=== PATIENT | female | born 1950 | race Caucasian/White ===

== ENCOUNTER 2016-09-07 18:25 | Inpatient (IN) | payer OTHER ==
[~2016-09-07] VITALS: Ht 157.5 cm; Wt 58.1 kg
[~2016-09-07 18:25] MED LIST: ALEN70TA48 PO; CARB-101 PO; DIVA500T35 PO; LEVO100 PO; LISI-662 PO; OLAN10TA3 PO; OLAN5TAB2 PO; OMEP20 PO; PROV2.5 PO; QUET50TA PO; TRAM50TA4 PO; TRIH5TAB2 PO; [UNRECOGNIZED DRUG - CODE] PO
[2016-09-07] MEDS ORDERED: CHLO100T24 PO (19:09)
[2016-09-07] MEDS ORDERED: FLUD25I IM (19:09)
[2016-09-07] MEDS ORDERED: ESCI10TA PO (19:09)
[2016-09-07] MEDS ORDERED: DIPH25 PO (19:09)
[2016-09-07] MEDS ORDERED: TRAZ-147 PO (19:09)
[2016-09-07 19:45] LABS: BASOPHILS % (AUTO) 0.4 % (0.0-2.0); EOSINOPHILS % (AUTO) 0.4 % (1.0-6.0); HEMATOCRIT 38.7 % (36-46); HEMOGLOBIN 12.8 g/dL (12.0-16.0); LYMPHOCYTES # (AUTO) 2.2 K/uL (1.0-4.8); LYMPHOCYTES % (AUTO) 22.8 % (22.0-44.0); MEAN CORPUSCULAR HEMOGLOBIN 29.6 pg (26.0-34.0); MEAN CORPUSCULAR HGB CONC 32.9 G/dL (31.0-37.0); MEAN CORPUSCULAR VOLUME 90 fL (80-100); MONOCYTES # (AUTO) 0.9 K/uL (0.1-1.0); MONOCYTES % (AUTO) 9.6 % (2.0-9.0); NEUTROPHILS # (AUTO) 6.5 K/uL (1.8-7.7); NEUTROPHILS % (AUTO) 66.8 % (40.0-70.0); PLATELET COUNT (AUTO) 194 K/uL (150-450); RED BLOOD CELL COUNT(AUTO) 4.31 MIL/uL (4.00-5.20); RED CELL DISTRIBUTION WIDTH 12.8 % (11.5-14.5); WHITE BLOOD COUNT (AUTO) 9.8 K/uL (4.5-11.0)
[2016-09-07] MEDS ORDERED: ONDANSETRON HCL 4 MG/2 ML VIAL IVP ONE (19:45)
[2016-09-07] MEDS ORDERED: SODIUM CHLORIDE 0.9% 1,000 ML IV ONE (19:45)
[2016-09-07 19:57] LABS: ANION GAP 13 mmol/L (8-16); CALCIUM, TOTAL 9.5 mg/dL (8.8-10.5); CARBON DIOXIDE 20 mmol/L (22-29); CHLORIDE 110 mmol/L (98-107); CREATININE 1.71 mg/dL (0.60-1.30); GLOMERULAR FILTR. RATE CALC 30 mL/min (>60); SODIUM SERUM 143 mmol/L (136-145); UREA NITROGEN, BLOOD 36 mg/dL (7-18)
[2016-09-07 20:21] LABS: ALANINE AMINOTRANSFERASE 17 U/L (12-78); ALBUMIN 3.9 g/dL (3.4-5.0); ASPARTATE AMINOTRANSFERASE 23 U/L (15-37); CREATINE KINASE MB 1.7 ng/mL (0-5); CREATINE KINASE, TOTAL 159 U/L (26-192); TOTAL PROTEIN, SERUM 7.5 g/dL (6.4-8.2)
[2016-09-07] MEDS: SODIUM CHLORIDE 0.9% 1,000 ML IV SCH (21:30)
[2016-09-07] MEDS ORDERED: ACETAMINOPHEN 325 MG TABLET PO PRN (21:30)
[2016-09-07] MEDS ORDERED: MAGNESIUM HYDROXIDE SUSPENSION 30 ML UDCUP PO PRN (21:30)
[2016-09-07] MEDS ORDERED: ALBUTEROL SULFATE 2.5 MG/0.5 ML NEB SOLUTION NEB PRN (21:30)
[2016-09-08 01:41] LABS: THYROID STIMULATING HORMONE 0.97 uIU/mL (0.36-3.74)
[2016-09-08 01:51] LABS: ADD UA MICROSCOPIC NO; APPEARANCE,URINE CLOUDY (CLEAR); GLUCOSE, URINE (UA) NEGATIVE (NEGATIVE); KETONES,URINE TRACE mg/dL (NEGATIVE); LEUKOCYTE ESTERASE ,URINE NEGATIVE (NEGATIVE); OCCULT BLOOD,URINE NEGATIVE (NEGATIVE); PROTEIN,URINE POS 1+ (NEGATIVE)
[2016-09-08] MEDS ORDERED: MENEST PO SCH (09:00)
[2016-09-08] MEDS ORDERED: FluPHENAZine DECANOATE 25 MG/ML IM SCH (09:00)
[2016-09-08] MEDS ORDERED: OMEPRAZOLE 20 MG CAPSULE PO SCH (09:00)
[2016-09-08] MEDS: DIVALPROEX SODIUM 500 MG DR TABLET PO SCH ×2 (10:17→20:43)
[2016-09-08] MEDS: OLANZapine 5 MG TABLET PO SCH (10:17)
[2016-09-08] MEDS: HEPARIN SODIUM,PORCINE 5,000 UNITS/ML VIAL SQ SCH ×2 (10:17→20:43)
[2016-09-08] MEDS: DOCUSATE SODIUM 100 MG CAPSULE PO SCH ×2 (10:17→20:43)
[2016-09-08] MEDS: PANTOPRAZOLE SODIUM 40 MG DR TABLET PO SCH (10:17)
[2016-09-08] MEDS: CARBIDOPA/LEVODOPA 25-100 MG TABLET PO SCH ×3 (10:17→20:43)
[2016-09-08] MEDS: LISINOPRIL 20 MG TABLET PO SCH (10:17)
[2016-09-08] MEDS: TRIHEXYPHENIDYL HCL 5 MG TABLET PO SCH ×2 (10:17→20:43)
[2016-09-08] MEDS: ASPIRIN 81 MG CHEWABLE TABLET PO SCH (10:17)
[2016-09-08 12:14] VITALS: BP 111/63
[2016-09-08 15:03] VITALS: BP 114/66
[2016-09-08] MEDS ORDERED: LORazepam 0.5 MG TABLET PO PRN (18:45)
[2016-09-08 19:34] VITALS: BP 126/74
[2016-09-08] MEDS: OLANZapine 10 MG TABLET PO SCH (20:43)
[2016-09-08] MEDS: QUEtiapine FUMARATE 100 MG TABLET PO SCH (20:43)
[2016-09-08] MEDS: DiphenhydrAMINE HCL 50 MG CAPSULE PO SCH (20:44)
[2016-09-08] MEDS ORDERED: TraZODone HCL 100 MG TABLET PO SCH (21:00)
[2016-09-08] MEDS ORDERED: ESCITALOPRAM OXALATE 10 MG TABLET PO SCH (21:00)
[2016-09-08] MEDS ORDERED: ChlorproMAZINE HCL 100 MG TABLET PO SCH (21:00)
[2016-09-08 23:15] VITALS: BP 124/63
[2016-09-09] MEDS: DiphenhydrAMINE HCL 50 MG CAPSULE PO SCH (00:21)
[2016-09-09] MEDS: SODIUM CHLORIDE 0.9% 1,000 ML IV SCH (00:21)
[2016-09-09 05:18] VITALS: BP 138/60
[2016-09-09] MEDS: LEVOTHYROXINE SODIUM 100 MCG TABLET PO SCH ×2 (05:53→05:59)
[2016-09-09 05:59] LABS: BASOPHILS # (AUTO) 0.03 K/uL (0.00-0.20); BASOPHILS % (AUTO) 0.5 % (0.0-2.0); EOSINOPHILS # (AUTO) 0.19 K/uL (0.00-0.70); EOSINOPHILS % (AUTO) 2.69 % (1.0-6.0); HEMOGLOBIN 12.3 g/dL (12.0-16.0); LYMPHOCYTES # (AUTO) 4.2 K/uL (1.0-4.8); LYMPHOCYTES % (AUTO) 58.3 % (22.0-44.0); MEAN CORPUSCULAR HEMOGLOBIN 30.5 pg (26.0-34.0); MEAN CORPUSCULAR HGB CONC 34.1 G/dL (31.0-37.0); MEAN CORPUSCULAR VOLUME 89 fL (80-100); MONOCYTES # (AUTO) 0.5 K/uL (0.1-1.0); MONOCYTES % (AUTO) 7.5 % (2.0-9.0); NEUTROPHILS # (AUTO) 2.2 K/uL (1.8-7.7); PLATELET COUNT (AUTO) 155 K/uL (150-450); RED BLOOD CELL COUNT(AUTO) 4.03 MIL/uL (4.00-5.20); RED CELL DISTRIBUTION WIDTH 13.1 % (11.5-14.5); WHITE BLOOD COUNT (AUTO) 7.2 K/uL (4.5-11.0)
[2016-09-09 06:43] LABS: ALANINE AMINOTRANSFERASE 11 U/L (12-78); ANION GAP 11 mmol/L (8-16); ASPARTATE AMINOTRANSFERASE 18 U/L (15-37); BILIRUBIN,TOTAL 0.8 mg/dL (0.1-1.0); CALCIUM, TOTAL 8.4 mg/dL (8.8-10.5); CARBON DIOXIDE 21 mmol/L (22-29); CHLORIDE 115 mmol/L (98-107); GLOMERULAR FILTR. RATE CALC > 60 mL/min (>60); POTASSIUM 3.8 mmol/L (3.5-5.1); SODIUM SERUM 147 mmol/L (136-145); TOTAL PROTEIN, SERUM 6.4 g/dL (6.4-8.2); UREA NITROGEN, BLOOD 18 mg/dL (7-18)
[2016-09-09] MEDS: DIVALPROEX SODIUM 500 MG DR TABLET PO SCH ×2 (08:45→20:54)
[2016-09-09] MEDS: TRIHEXYPHENIDYL HCL 5 MG TABLET PO SCH (08:45)
[2016-09-09] MEDS: CARBIDOPA/LEVODOPA 25-100 MG TABLET PO SCH ×3 (08:45→20:51)
[2016-09-09] MEDS: ASPIRIN 81 MG CHEWABLE TABLET PO SCH (08:47)
[2016-09-09] MEDS: PANTOPRAZOLE SODIUM 40 MG DR TABLET PO SCH (08:47)
[2016-09-09] MEDS: LISINOPRIL 20 MG TABLET PO SCH (08:47)
[2016-09-09] MEDS: HEPARIN SODIUM,PORCINE 5,000 UNITS/ML VIAL SQ SCH ×2 (08:47→20:57)
[2016-09-09] MEDS: OLANZapine 5 MG TABLET PO SCH (08:47)
[2016-09-09] MEDS: DOCUSATE SODIUM 100 MG CAPSULE PO SCH ×2 (08:48→21:00)
[2016-09-09] MEDS: MEGESTROL ACETATE 400 MG/10 ML SUSPENSION UDCUP PO SCH ×2 (09:15→21:00)
[2016-09-09] MEDS ORDERED: QUET100T PO (10:50)
[2016-09-09] MEDS ORDERED: LORazepam 2 MG TABLET PO PRN (17:45)
[2016-09-09] MEDS: OLANZapine 10 MG TABLET PO SCH ×2 (20:51→21:00)
[2016-09-09] MEDS: QUEtiapine FUMARATE 100 MG TABLET PO SCH (21:00)
[2016-09-09 21:08] VITALS: BP 131/72
[2016-09-10] MEDS: SODIUM CHLORIDE 0.9% 1,000 ML IV SCH ×3 (02:50→21:10)
[2016-09-10 05:15] VITALS: BP 144/70
[2016-09-10] MEDS: LEVOTHYROXINE SODIUM 100 MCG TABLET PO SCH (06:09)
[2016-09-10 08:55] VITALS: BP 139/82
[2016-09-10] MEDS: PANTOPRAZOLE SODIUM 40 MG DR TABLET PO SCH (09:00)
[2016-09-10] MEDS: MEGESTROL ACETATE 400 MG/10 ML SUSPENSION UDCUP PO SCH ×2 (09:00→21:03)
[2016-09-10] MEDS: ASPIRIN 81 MG CHEWABLE TABLET PO SCH (09:00)
[2016-09-10] MEDS: DOCUSATE SODIUM 100 MG CAPSULE PO SCH ×2 (09:00→21:03)
[2016-09-10] MEDS: HEPARIN SODIUM,PORCINE 5,000 UNITS/ML VIAL SQ SCH ×2 (09:00→21:03)
[2016-09-10] MEDS: OLANZapine 5 MG TABLET PO SCH (10:16)
[2016-09-10] MEDS: CARBIDOPA/LEVODOPA 25-100 MG TABLET PO SCH ×3 (10:16→21:03)
[2016-09-10] MEDS: DIVALPROEX SODIUM 500 MG DR TABLET PO SCH ×2 (10:16→21:03)
[2016-09-10] MEDS: LISINOPRIL 20 MG TABLET PO SCH (10:18)
[2016-09-10 12:02] VITALS: BP 104/60
[2016-09-10 20:15] VITALS: BP 104/57
[2016-09-10] MEDS: OLANZapine 10 MG TABLET PO SCH (21:03)
[2016-09-10 23:15] VITALS: BP 108/62
[2016-09-11 03:30] VITALS: BP 128/68
[2016-09-11] MEDS: LEVOTHYROXINE SODIUM 100 MCG TABLET PO SCH (06:23)
[2016-09-11] MEDS ORDERED: ALENDRONATE SODIUM 70 MG TABLET PO SCH (06:30)
[2016-09-11 06:56] LABS: BASOPHILS % (AUTO) 0.6 % (0.0-2.0); EOSINOPHILS % (AUTO) 5.2 % (1.0-6.0); HEMATOCRIT 38.3 % (36-46); HEMOGLOBIN 12.6 g/dL (12.0-16.0); LYMPHOCYTES # (AUTO) 2.8 K/uL (1.0-4.8); LYMPHOCYTES % (AUTO) 54.7 % (22.0-44.0); MEAN CORPUSCULAR HEMOGLOBIN 29.9 pg (26.0-34.0); MEAN CORPUSCULAR VOLUME 90 fL (80-100); MONOCYTES # (AUTO) 0.5 K/uL (0.1-1.0); MONOCYTES % (AUTO) 9.4 % (2.0-9.0); NEUTROPHILS # (AUTO) 1.5 K/uL (1.8-7.7); NEUTROPHILS % (AUTO) 30.1 % (40.0-70.0); PLATELET COUNT (AUTO) 145 K/uL (150-450); RED BLOOD CELL COUNT(AUTO) 4.24 MIL/uL (4.00-5.20); RED CELL DISTRIBUTION WIDTH 13.2 % (11.5-14.5); WHITE BLOOD COUNT (AUTO) 5.1 K/uL (4.5-11.0)
[2016-09-11 07:13] VITALS: BP 116/69
[2016-09-11 07:22] LABS: ALANINE AMINOTRANSFERASE 15 U/L (12-78); ANION GAP 12 mmol/L (8-16); ASPARTATE AMINOTRANSFERASE 26 U/L (15-37); BILIRUBIN,TOTAL 0.6 mg/dL (0.1-1.0); CALCIUM, TOTAL 8.3 mg/dL (8.8-10.5); CARBON DIOXIDE 22 mmol/L (22-29); CHLORIDE 112 mmol/L (98-107); CREATININE 0.64 mg/dL (0.60-1.30); GLOMERULAR FILTR. RATE CALC > 60 mL/min (>60); POTASSIUM 3.5 mmol/L (3.5-5.1); SODIUM SERUM 146 mmol/L (136-145); TOTAL PROTEIN, SERUM 6.4 g/dL (6.4-8.2); UREA NITROGEN, BLOOD 9 mg/dL (7-18)
[2016-09-11] MEDS: DOCUSATE SODIUM 100 MG CAPSULE PO SCH ×2 (09:30→20:25)
[2016-09-11] MEDS: DIVALPROEX SODIUM 500 MG DR TABLET PO SCH ×2 (09:30→20:25)
[2016-09-11] MEDS: MEGESTROL ACETATE 400 MG/10 ML SUSPENSION UDCUP PO SCH ×2 (09:30→20:25)
[2016-09-11] MEDS: LISINOPRIL 20 MG TABLET PO SCH (09:31)
[2016-09-11] MEDS: CARBIDOPA/LEVODOPA 25-100 MG TABLET PO SCH ×3 (09:31→20:25)
[2016-09-11] MEDS: HEPARIN SODIUM,PORCINE 5,000 UNITS/ML VIAL SQ SCH ×2 (09:31→20:26)
[2016-09-11] MEDS: OLANZapine 5 MG TABLET PO SCH (09:31)
[2016-09-11] MEDS: PANTOPRAZOLE SODIUM 40 MG DR TABLET PO SCH (09:31)
[2016-09-11] MEDS: ASPIRIN 81 MG CHEWABLE TABLET PO SCH (09:31)
[2016-09-11 11:38] VITALS: BP 122/70
[2016-09-11 14:03] LABS: CHOL/HDL RATIO 2.9 (3.9-5.7)
[2016-09-11 15:49] VITALS: BP 116/53
[2016-09-11 20:22] VITALS: BP 118/71
[2016-09-11] MEDS: OLANZapine 10 MG TABLET PO SCH (20:25)
[2016-09-12 00:15] VITALS: BP 112/79
[2016-09-12 04:42] VITALS: BP 116/70
[2016-09-12] MEDS: LEVOTHYROXINE SODIUM 100 MCG TABLET PO SCH (05:29)
[2016-09-12] MEDS: SODIUM CHLORIDE 0.9% 1,000 ML IV SCH (08:10)
[2016-09-12 08:28] VITALS: BP 115/59
[2016-09-12] MEDS: DIVALPROEX SODIUM 500 MG DR TABLET PO SCH (08:38)
[2016-09-12] MEDS: CARBIDOPA/LEVODOPA 25-100 MG TABLET PO SCH ×2 (08:38→16:23)
[2016-09-12] MEDS: DOCUSATE SODIUM 100 MG CAPSULE PO SCH (08:38)
[2016-09-12] MEDS: PANTOPRAZOLE SODIUM 40 MG DR TABLET PO SCH (08:38)
[2016-09-12] MEDS: MEGESTROL ACETATE 400 MG/10 ML SUSPENSION UDCUP PO SCH (08:40)
[2016-09-12] MEDS: LISINOPRIL 20 MG TABLET PO SCH (08:40)
[2016-09-12] MEDS: ASPIRIN 81 MG CHEWABLE TABLET PO SCH (08:40)
[2016-09-12] MEDS: HEPARIN SODIUM,PORCINE 5,000 UNITS/ML VIAL SQ SCH (08:41)
[2016-09-12] MEDS: OLANZapine 5 MG TABLET PO SCH (08:41)
[2016-09-12 11:48] VITALS: BP 110/68
[2016-09-12] MEDS ORDERED: ASPI-1093 PO ×2 (14:52→16:11)
[2016-09-12] MEDS ORDERED: MEGE400O21 PO (16:13)
[2016-09-12] MEDS ORDERED: ACET-2247 PO (16:14)
[2016-09-12] MEDS ORDERED: LORA2TAB2 PO (16:15)
[2016-09-12] MEDS ORDERED: AUD NEB (16:16)
[2016-09-12 16:38] VITALS: BP 118/70
== END 2016-09-12 16:45 | DRG 683 ==
LOC: EMS 18:26 → 6N 09-08 04:00
PROVIDERS: ADMIT Internal Medicine; ATTEND Internal Medicine
DX: N17.0 Acute kidney failure with tubular necrosis (principal); E44.0 Moderate protein-calorie malnutrition; F20.0 Paranoid schizophrenia; G20 Parkinson's disease; F20.9 Schizophrenia, unspecified; F99 Mental disorder, not otherwise specified; E86.0 Dehydration; R62.7 Adult failure to thrive; M81.0 Age-related osteoporosis without current pathological fracture; K21.9 Gastro-esophageal reflux disease without esophagitis; I10 Essential (primary) hypertension; E03.9 Hypothyroidism, unspecified; Z91.19 Patient's noncompliance with other medical treatment and regimen; Z79.899 Other long term (current) drug therapy; Z68.23 Body mass index [BMI] 23.0-23.9, adult
CPT/HCPCS: 82306; 84443; 93005; 96361; 96374; 97116; 97161; 97530; 99285; J1644; J2405; J7030

== ENCOUNTER 2016-10-21 10:03 | Inpatient (IN) | payer OTHER, MEDICAID ==
[~2016-10-21] VITALS: Ht 157.5 cm; Wt 64.5 kg
[~2016-10-21 10:03] MED LIST changes: +ACET-2247 PO; +ASPI-1093 PO; +AUD NEB; +LORA2TAB2 PO; +MEGE400O21 PO; -OMEP20 PO; -QUET50TA PO; -TRAM50TA4 PO; -TRIH5TAB2 PO
[2016-10-21 11:21] LABS: BASOPHILS % (AUTO) 0.5 % (0.0-2.0); EOSINOPHILS % (AUTO) 4.1 % (1.0-6.0); HEMATOCRIT 39.6 % (36-46); LYMPHOCYTES # (AUTO) 2.9 K/uL (1.0-4.8); LYMPHOCYTES % (AUTO) 34.4 % (22.0-44.0); MEAN CORPUSCULAR HEMOGLOBIN 30.3 pg (26.0-34.0); MEAN CORPUSCULAR HGB CONC 32.7 G/dL (31.0-37.0); MEAN CORPUSCULAR VOLUME 93 fL (80-100); MONOCYTES # (AUTO) 0.8 K/uL (0.1-1.0); MONOCYTES % (AUTO) 9.2 % (2.0-9.0); NEUTROPHILS # (AUTO) 4.4 K/uL (1.8-7.7); NEUTROPHILS % (AUTO) 51.8 % (40.0-70.0); PLATELET COUNT (AUTO) 220 K/uL (150-450); RED BLOOD CELL COUNT(AUTO) 4.28 MIL/uL (4.00-5.20); WHITE BLOOD COUNT (AUTO) 8.6 K/uL (4.5-11.0)
[2016-10-21 11:40] LABS: ANION GAP 13 mmol/L (8-16); CALCIUM, TOTAL 9.2 mg/dL (8.8-10.5); CARBON DIOXIDE 21 mmol/L (22-29); CHLORIDE 111 mmol/L (98-107); CREATININE 0.89 mg/dL (0.60-1.30); GLOMERULAR FILTR. RATE CALC > 60 mL/min (>60); POTASSIUM 3.9 mmol/L (3.5-5.1); SODIUM SERUM 145 mmol/L (136-145); UREA NITROGEN, BLOOD 25 mg/dL (7-18)
[2016-10-21 11:43] LABS: ALANINE AMINOTRANSFERASE 15 U/L (12-78); ASPARTATE AMINOTRANSFERASE 25 U/L (15-37); BILIRUBIN,TOTAL 0.8 mg/dL (0.1-1.0)
[2016-10-21] MEDS ORDERED: ZOLPIDEM TARTRATE 10 MG TABLET PO PRN (13:15)
[2016-10-21] MEDS ORDERED: OLANZapine 5 MG RAPDIS TABLET PO PRN (13:15)
[2016-10-21] MEDS ORDERED: MAG HYDROX/AL HYDROX/SIMETH ES 30 ML SUSPENSION UDCUP PO PRN (13:15)
[2016-10-21] MEDS ORDERED: GuaiFENesin/D-METHORPHAN [SUGAR-FREE] 200-20MG/10 ML SYRUP UDCUP PO PRN (13:15)
[2016-10-21] MEDS ORDERED: LORazepam 2 MG TABLET PO PRN (13:15)
[2016-10-21] MEDS ORDERED: ACETAMINOPHEN 325 MG TABLET PO PRN (13:15)
[2016-10-21] MEDS ORDERED: MAGNESIUM HYDROXIDE SUSPENSION 30 ML UDCUP PO PRN (13:15)
[2016-10-21] MEDS ORDERED: TUBERCULIN, PURIFIED PROTEIN DERIVATIVE 5 TU/0.1 ML SYG ID ONE (13:15)
[2016-10-21] MEDS ORDERED: HydrOXYzine PAMOATE 50 MG CAPSULE PO PRN (13:15)
[2016-10-21] MEDS ORDERED: LOPERAMIDE HCL 2 MG CAPSULE PO PRN (13:15)
[2016-10-21] MEDS ORDERED: PROMETHAZINE HCL 25 MG TABLET PO PRN (13:15)
[2016-10-21 15:24] VITALS: BP 111/60
[2016-10-21 16:33] VITALS: BP 130/77
[2016-10-21] MEDS: THIAMINE HCL 100 MG TABLET PO SCH (16:39)
[2016-10-21] MEDS: MEGESTROL ACETATE 400 MG/10 ML SUSPENSION UDCUP PO SCH (16:39)
[2016-10-21] MEDS: CARBIDOPA/LEVODOPA 25-100 MG TABLET PO SCH (16:39)
[2016-10-21] MEDS: OLANZapine 5 MG RAPDIS TABLET PO SCH (22:22)
[2016-10-22] MEDS ORDERED: ALENDRONATE SODIUM 70 MG TABLET PO SCH (06:30)
[2016-10-22] MEDS: LEVOTHYROXINE SODIUM 100 MCG TABLET PO SCH (07:11)
[2016-10-22 07:22] LABS: BASOPHILS % (AUTO) 0.9 % (0.0-2.0); EOSINOPHILS % (AUTO) 4.8 % (1.0-6.0); HEMATOCRIT 36.4 % (36-46); LYMPHOCYTES # (AUTO) 3.7 K/uL (1.0-4.8); MEAN CORPUSCULAR HEMOGLOBIN 30.5 pg (26.0-34.0); MEAN CORPUSCULAR VOLUME 93 fL (80-100); MONOCYTES # (AUTO) 0.7 K/uL (0.1-1.0); MONOCYTES % (AUTO) 8.1 % (2.0-9.0); NEUTROPHILS # (AUTO) 3.2 K/uL (1.8-7.7); NEUTROPHILS % (AUTO) 40.2 % (40.0-70.0); PLATELET COUNT (AUTO) 210 K/uL (150-450); RED BLOOD CELL COUNT(AUTO) 3.94 MIL/uL (4.00-5.20); RED CELL DISTRIBUTION WIDTH 14.8 % (11.5-14.5); WHITE BLOOD COUNT (AUTO) 8.1 K/uL (4.5-11.0)
[2016-10-22 07:57] LABS: ALANINE AMINOTRANSFERASE 37 U/L (12-78); ALBUMIN 3.7 g/dL (3.4-5.0); ANION GAP 13 mmol/L (8-16); ASPARTATE AMINOTRANSFERASE 21 U/L (15-37); BILIRUBIN,TOTAL 0.9 mg/dL (0.1-1.0); CALCIUM, TOTAL 8.7 mg/dL (8.8-10.5); CARBON DIOXIDE 19 mmol/L (22-29); CHLORIDE 113 mmol/L (98-107); CHOL/HDL RATIO 3.2 (3.9-5.7); CREATININE 0.79 mg/dL (0.60-1.30); GLOMERULAR FILTR. RATE CALC > 60 mL/min (>60); POTASSIUM 3.9 mmol/L (3.5-5.1); SODIUM SERUM 145 mmol/L (136-145); THYROID STIMULATING HORMONE 1.54 uIU/mL (0.36-3.74); TOTAL PROTEIN, SERUM 6.9 g/dL (6.4-8.2); UREA NITROGEN, BLOOD 26 mg/dL (7-18)
[2016-10-22 07:58] LABS: HEMOGLOBIN A1C 6.4 % (4.5-6.2)
[2016-10-22] MEDS: MEGESTROL ACETATE 400 MG/10 ML SUSPENSION UDCUP PO SCH ×2 (08:04→16:33)
[2016-10-22] MEDS: LISINOPRIL 20 MG TABLET PO SCH (08:04)
[2016-10-22] MEDS: ASPIRIN 81 MG EC TABLET PO SCH (08:05)
[2016-10-22] MEDS: CARBIDOPA/LEVODOPA 25-100 MG TABLET PO SCH ×3 (08:05→16:33)
[2016-10-22] MEDS: THIAMINE HCL 100 MG TABLET PO SCH ×2 (08:05→16:33)
[2016-10-22] MEDS: FOLIC ACID 1 MG TABLET PO SCH (08:05)
[2016-10-22] MEDS: MULTIVITAMINS WITH MINERALS, THERAPEUTIC TABLET PO SCH (08:05)
[2016-10-22 08:45] VITALS: BP 138/77
[2016-10-22 17:00] VITALS: BP 120/73
[2016-10-22] MEDS: OLANZapine 5 MG RAPDIS TABLET PO SCH (21:40)
[2016-10-23] MEDS: LEVOTHYROXINE SODIUM 100 MCG TABLET PO SCH (06:18)
[2016-10-23 06:44] VITALS: BP 130/72
[2016-10-23] MEDS: LISINOPRIL 20 MG TABLET PO SCH (08:53)
[2016-10-23] MEDS: THIAMINE HCL 100 MG TABLET PO SCH ×2 (08:53→16:10)
[2016-10-23] MEDS: MULTIVITAMINS WITH MINERALS, THERAPEUTIC TABLET PO SCH (08:53)
[2016-10-23] MEDS: CARBIDOPA/LEVODOPA 25-100 MG TABLET PO SCH ×3 (08:54→16:10)
[2016-10-23] MEDS: ASPIRIN 81 MG EC TABLET PO SCH (08:54)
[2016-10-23] MEDS: FOLIC ACID 1 MG TABLET PO SCH (08:54)
[2016-10-23] MEDS: MEGESTROL ACETATE 400 MG/10 ML SUSPENSION UDCUP PO SCH ×2 (08:55→16:10)
[2016-10-23 09:00] VITALS: BP 132/69
[2016-10-23 17:08] VITALS: BP 113/77
[2016-10-23] MEDS: TraZODone HCL 100 MG TABLET PO SCH (20:38)
[2016-10-23] MEDS: OLANZapine 5 MG RAPDIS TABLET PO SCH (20:38)
[2016-10-24] MEDS: LEVOTHYROXINE SODIUM 100 MCG TABLET PO SCH (06:51)
[2016-10-24 08:55] VITALS: BP 128/76
[2016-10-24] MEDS: CARBIDOPA/LEVODOPA 25-100 MG TABLET PO SCH ×3 (09:34→16:53)
[2016-10-24] MEDS: FOLIC ACID 1 MG TABLET PO SCH (09:34)
[2016-10-24] MEDS: MULTIVITAMINS WITH MINERALS, THERAPEUTIC TABLET PO SCH (09:34)
[2016-10-24] MEDS: MEGESTROL ACETATE 400 MG/10 ML SUSPENSION UDCUP PO SCH ×2 (09:34→16:53)
[2016-10-24] MEDS: ASPIRIN 81 MG EC TABLET PO SCH (09:35)
[2016-10-24] MEDS: LISINOPRIL 20 MG TABLET PO SCH (09:35)
[2016-10-24] MEDS: THIAMINE HCL 100 MG TABLET PO SCH ×2 (09:35→16:53)
[2016-10-24] MEDS ORDERED: OLAN5Z PO (11:27)
[2016-10-24] MEDS ORDERED: TRAZ-147 PO (11:27)
[2016-10-24 11:32] VITALS: BP 136/74
[2016-10-24 16:19] VITALS: BP 127/79
[2016-10-24] MEDS: TraZODone HCL 100 MG TABLET PO SCH (20:25)
[2016-10-24] MEDS: OLANZapine 5 MG RAPDIS TABLET PO SCH (20:25)
[2016-10-25] MEDS: LEVOTHYROXINE SODIUM 100 MCG TABLET PO SCH (06:40)
[2016-10-25 08:52] VITALS: BP 120/79
[2016-10-25] MEDS: CARBIDOPA/LEVODOPA 25-100 MG TABLET PO SCH ×2 (09:34→12:11)
[2016-10-25] MEDS: MEGESTROL ACETATE 400 MG/10 ML SUSPENSION UDCUP PO SCH (09:34)
[2016-10-25] MEDS: ASPIRIN 81 MG EC TABLET PO SCH (09:34)
[2016-10-25] MEDS: THIAMINE HCL 100 MG TABLET PO SCH (09:34)
[2016-10-25] MEDS: LISINOPRIL 20 MG TABLET PO SCH (09:34)
[2016-10-25] MEDS: FOLIC ACID 1 MG TABLET PO SCH (09:34)
[2016-10-25] MEDS: MULTIVITAMINS WITH MINERALS, THERAPEUTIC TABLET PO SCH (09:34)
[2016-10-25] MEDS ORDERED: MEGE400O PO (10:45)
[2016-10-25] MEDS ORDERED: OLAN5Z PO (10:45)
[2016-10-25] MEDS ORDERED: TRAZ-147 PO (10:45)
[2016-10-25] MEDS ORDERED: FOLI1 PO (10:45)
[2016-10-25] MEDS ORDERED: MV-M1TAB2 PO (10:45)
[2016-10-25] MEDS ORDERED: THIA100 PO (10:45)
== END 2016-10-25 15:00 | disposition home or self-care (01) | DRG 885 ==
LOC: EEVIPCON 10:03 → EMS 10:08 → 3EX 13:06
PROVIDERS: ADMIT Psychiatry & Neurology Psychiatry; ATTEND Psychiatry & Neurology Psychiatry
PROC: GZHZZZZ Group Psychotherapy (ICD-10-PCS; principal; 2016-10-21)
PROC: GZ51ZZZ Individual Psychotherapy, Behavioral (ICD-10-PCS; 2016-10-21)
DX: F20.0 Paranoid schizophrenia (principal); E03.9 Hypothyroidism, unspecified; G20 Parkinson's disease; J45.909 Unspecified asthma, uncomplicated; K21.9 Gastro-esophageal reflux disease without esophagitis; M81.0 Age-related osteoporosis without current pathological fracture; B19.20 Unspecified viral hepatitis C without hepatic coma; Z53.29 Procedure and treatment not carried out because of patient's decision for other reasons; F32.9 Major depressive disorder, single episode, unspecified; I10 Essential (primary) hypertension; Z79.82 Long term (current) use of aspirin; Z91.19 Patient's noncompliance with other medical treatment and regimen
CPT/HCPCS: 83036; 84439; 84443; 86592; 99285; G0480

== ENCOUNTER 2016-11-04 13:34 | Inpatient (IN) | payer OTHER, MEDICAID ==
[~2016-11-04] VITALS: Ht 157.5 cm; Wt 65.4 kg
[~2016-11-04 13:34] MED LIST changes: -ACET-2247 PO; -AUD NEB; -DIVA500T35 PO; +FOLI1 PO; -LORA2TAB2 PO; +MV-M1TAB2 PO; -OLAN10TA3 PO; -OLAN5TAB2 PO; +OLAN5Z PO; +THIA100 PO; +TRAZ-147 PO; -[UNRECOGNIZED DRUG - CODE] PO
[2016-11-04] MEDS ORDERED: ZOLPIDEM TARTRATE 10 MG TABLET PO PRN (14:45)
[2016-11-04] MEDS ORDERED: HydrOXYzine PAMOATE 50 MG CAPSULE PO PRN (14:45)
[2016-11-04] MEDS ORDERED: ACETAMINOPHEN 325 MG TABLET PO PRN (14:45)
[2016-11-04] MEDS ORDERED: CYANOCOBALAMIN 1,000 MCG/ML VIAL IM ONE (14:45)
[2016-11-04] MEDS ORDERED: PROMETHAZINE HCL 25 MG TABLET PO PRN (14:45)
[2016-11-04] MEDS ORDERED: GuaiFENesin/D-METHORPHAN [SUGAR-FREE] 200-20MG/10 ML SYRUP UDCUP PO PRN (14:45)
[2016-11-04] MEDS ORDERED: MAG HYDROX/AL HYDROX/SIMETH ES 30 ML SUSPENSION UDCUP PO PRN (14:45)
[2016-11-04] MEDS ORDERED: LOPERAMIDE HCL 2 MG CAPSULE PO PRN (14:45)
[2016-11-04 15:22] LABS: APPEARANCE,URINE CLOUDY (CLEAR); GLUCOSE, URINE (UA) NEGATIVE (NEGATIVE); KETONES,URINE 15 mg/dL (NEGATIVE); OCCULT BLOOD,URINE SMALL (NEGATIVE); PH,URINE 5.5 (5.0-8.0); PROTEIN,URINE SEE CONFIRM (NEGATIVE)
[2016-11-04 15:25] LABS: ADD UA MICROSCOPIC YES; LEUKOCYTE ESTERASE ,URINE MODERATE (NEGATIVE)
[2016-11-04 15:26] LABS: SQUAMOUS EPITHELIAL CELL,UR Moderate /LPF (None Seen); SULFOSALICYLIC ACID,URINE 2+ (Negative); WBC,URINE 26-50 /HPF (0-5)
[2016-11-04 16:06] LABS: BASOPHILS % (AUTO) 0.5 % (0.0-2.0); EOSINOPHILS % (AUTO) 2.6 % (1.0-6.0); HEMATOCRIT 38.4 % (36-46); HEMOGLOBIN 12.5 g/dL (12.0-16.0); LYMPHOCYTES # (AUTO) 2.3 K/uL (1.0-4.8); LYMPHOCYTES % (AUTO) 32.7 % (22.0-44.0); MEAN CORPUSCULAR HEMOGLOBIN 30.6 pg (26.0-34.0); MEAN CORPUSCULAR HGB CONC 32.6 G/dL (31.0-37.0); MEAN CORPUSCULAR VOLUME 94 fL (80-100); MONOCYTES # (AUTO) 0.7 K/uL (0.1-1.0); MONOCYTES % (AUTO) 9.7 % (2.0-9.0); NEUTROPHILS # (AUTO) 3.8 K/uL (1.8-7.7); NEUTROPHILS % (AUTO) 54.5 % (40.0-70.0); PLATELET COUNT (AUTO) 202 K/uL (150-450); RED CELL DISTRIBUTION WIDTH 14.9 % (11.5-14.5); WHITE BLOOD COUNT (AUTO) 6.9 K/uL (4.5-11.0)
[2016-11-04 16:16] LABS: ANION GAP 16 mmol/L (8-16); CALCIUM, TOTAL 9.4 mg/dL (8.8-10.5); CARBON DIOXIDE 19 mmol/L (22-29); CHLORIDE 108 mmol/L (98-107); CREATININE 1.17 mg/dL (0.60-1.30); GLOMERULAR FILTR. RATE CALC 46 mL/min (>60); POTASSIUM 4.5 mmol/L (3.5-5.1); SODIUM SERUM 143 mmol/L (136-145); UREA NITROGEN, BLOOD 25 mg/dL (7-18)
[2016-11-04] MEDS ORDERED: LIDOCAINE HCL/PF 1% 2 ML VIAL IM ONE (16:30)
[2016-11-04] MEDS ORDERED: CefTRIAXone SODIUM 1 GM/VIAL IM ONE (16:30)
[2016-11-04 17:37] LABS: ALANINE AMINOTRANSFERASE 26 U/L (12-78); ALBUMIN 4.2 g/dL (3.4-5.0); ASPARTATE AMINOTRANSFERASE 35 U/L (15-37); BILIRUBIN,TOTAL 1.3 mg/dL (0.1-1.0)
[2016-11-04] MEDS: THIAMINE HCL 100 MG TABLET PO SCH (17:57)
[2016-11-04 19:20] VITALS: BP 160/102
[2016-11-04 19:38] VITALS: BP 110/70
[2016-11-04] MEDS: OLANZapine 5 MG RAPDIS TABLET PO SCH (20:14)
[2016-11-04] MEDS: TraZODone HCL 100 MG TABLET PO SCH (20:14)
[2016-11-04] MEDS: CIPROFLOXACIN HCL 500 MG TABLET PO SCH (20:19)
[2016-11-04] MEDS: CARBIDOPA/LEVODOPA 25-100 MG TABLET PO SCH (20:19)
[2016-11-04] MEDS: NYSTATIN 30 GM CREAM TP SCH (20:19)
[2016-11-04 21:40] VITALS: BP 110/70
[2016-11-05 00:30] VITALS: BP 126/66
[2016-11-05] MEDS: LEVOTHYROXINE SODIUM 100 MCG TABLET PO SCH (06:30)
[2016-11-05 07:05] LABS: BASOPHILS % (AUTO) 0.6 % (0.0-2.0); EOSINOPHILS % (AUTO) 3.2 % (1.0-6.0); HEMATOCRIT 33.9 % (36-46); HEMOGLOBIN 11.1 g/dL (12.0-16.0); LYMPHOCYTES # (AUTO) 3.2 K/uL (1.0-4.8); MEAN CORPUSCULAR HEMOGLOBIN 30.7 pg (26.0-34.0); MEAN CORPUSCULAR HGB CONC 32.7 G/dL (31.0-37.0); MEAN CORPUSCULAR VOLUME 94 fL (80-100); MONOCYTES # (AUTO) 0.7 K/uL (0.1-1.0); MONOCYTES % (AUTO) 9.9 % (2.0-9.0); NEUTROPHILS # (AUTO) 2.8 K/uL (1.8-7.7); NEUTROPHILS % (AUTO) 40.3 % (40.0-70.0); PLATELET COUNT (AUTO) 180 K/uL (150-450); RED BLOOD CELL COUNT(AUTO) 3.61 MIL/uL (4.00-5.20)
[2016-11-05 07:34] LABS: ALBUMIN 3.6 g/dL (3.4-5.0); BILIRUBIN,TOTAL 0.9 mg/dL (0.1-1.0); CALCIUM, TOTAL 8.6 mg/dL (8.8-10.5); CHOL/HDL RATIO 3.5 (3.9-5.7); CREATININE 1.16 mg/dL (0.60-1.30); POTASSIUM 4.2 mmol/L (3.5-5.1); THYROID STIMULATING HORMONE 1.24 uIU/mL (0.36-3.74); TOTAL PROTEIN, SERUM 6.8 g/dL (6.4-8.2)
[2016-11-05 07:46] LABS: HEMOGLOBIN A1C 5.9 % (4.5-6.2)
[2016-11-05] MEDS: MULTIVITAMINS WITH MINERALS, THERAPEUTIC TABLET PO SCH (08:43)
[2016-11-05] MEDS: ASPIRIN 81 MG EC TABLET PO SCH (08:43)
[2016-11-05] MEDS: CARBIDOPA/LEVODOPA 25-100 MG TABLET PO SCH ×3 (08:43→16:07)
[2016-11-05] MEDS: LISINOPRIL 20 MG TABLET PO SCH (08:43)
[2016-11-05] MEDS: THIAMINE HCL 100 MG TABLET PO SCH ×2 (08:43→16:07)
[2016-11-05] MEDS: NYSTATIN 30 GM CREAM TP SCH ×2 (08:43→16:07)
[2016-11-05] MEDS: CIPROFLOXACIN HCL 500 MG TABLET PO SCH ×2 (08:43→16:07)
[2016-11-05] MEDS: FOLIC ACID 1 MG TABLET PO SCH (08:43)
[2016-11-05 09:28] VITALS: BP 107/59
[2016-11-05] MEDS: LORazepam 2 MG TABLET PO PRN (11:10)
[2016-11-05 18:38] VITALS: BP 110/69
[2016-11-05] MEDS: TraZODone HCL 100 MG TABLET PO SCH (20:27)
[2016-11-05] MEDS: OLANZapine 5 MG RAPDIS TABLET PO SCH (20:27)
[2016-11-06] MEDS: LEVOTHYROXINE SODIUM 100 MCG TABLET PO SCH (06:17)
[2016-11-06] MEDS: LISINOPRIL 20 MG TABLET PO SCH (07:53)
[2016-11-06] MEDS: FOLIC ACID 1 MG TABLET PO SCH (07:53)
[2016-11-06] MEDS: CARBIDOPA/LEVODOPA 25-100 MG TABLET PO SCH ×3 (07:53→16:03)
[2016-11-06] MEDS: THIAMINE HCL 100 MG TABLET PO SCH ×2 (07:53→16:03)
[2016-11-06] MEDS: NYSTATIN 30 GM CREAM TP SCH ×2 (07:54→16:03)
[2016-11-06] MEDS: ASPIRIN 81 MG EC TABLET PO SCH (07:54)
[2016-11-06] MEDS: CIPROFLOXACIN HCL 500 MG TABLET PO SCH ×2 (07:54→16:03)
[2016-11-06] MEDS: MULTIVITAMINS WITH MINERALS, THERAPEUTIC TABLET PO SCH (07:54)
[2016-11-06 08:00] VITALS: BP 128/72
[2016-11-06] MEDS: MAGNESIUM HYDROXIDE SUSPENSION 30 ML UDCUP PO PRN (08:56)
[2016-11-06 16:41] VITALS: BP 100/64
[2016-11-06] MEDS: OLANZapine 10 MG RAPDIS TABLET PO SCH (20:04)
[2016-11-06] MEDS: TraZODone HCL 100 MG TABLET PO SCH (20:05)
[2016-11-07 06:00] VITALS: BP 123/63
[2016-11-07] MEDS: LEVOTHYROXINE SODIUM 100 MCG TABLET PO SCH (07:16)
[2016-11-07 08:10] VITALS: BP 122/64
[2016-11-07] MEDS: MULTIVITAMINS WITH MINERALS, THERAPEUTIC TABLET PO SCH (08:32)
[2016-11-07] MEDS: CIPROFLOXACIN HCL 500 MG TABLET PO SCH ×2 (08:32→16:19)
[2016-11-07] MEDS: LISINOPRIL 20 MG TABLET PO SCH (08:32)
[2016-11-07] MEDS: ASPIRIN 81 MG EC TABLET PO SCH (08:32)
[2016-11-07] MEDS: CARBIDOPA/LEVODOPA 25-100 MG TABLET PO SCH ×3 (08:32→16:19)
[2016-11-07] MEDS: THIAMINE HCL 100 MG TABLET PO SCH ×2 (08:32→16:19)
[2016-11-07] MEDS: FOLIC ACID 1 MG TABLET PO SCH (08:32)
[2016-11-07] MEDS: NYSTATIN 30 GM CREAM TP SCH ×2 (08:33→16:38)
[2016-11-07 16:08] VITALS: BP 129/77
[2016-11-07] MEDS: TraZODone HCL 100 MG TABLET PO SCH (20:19)
[2016-11-07] MEDS: OLANZapine 10 MG RAPDIS TABLET PO SCH (20:19)
[2016-11-08 00:08] VITALS: BP 90/52
[2016-11-08] MEDS: LEVOTHYROXINE SODIUM 100 MCG TABLET PO SCH (06:30)
[2016-11-08] MEDS: FOLIC ACID 1 MG TABLET PO SCH (08:01)
[2016-11-08] MEDS: LISINOPRIL 20 MG TABLET PO SCH (08:01)
[2016-11-08] MEDS: ASPIRIN 81 MG EC TABLET PO SCH (08:01)
[2016-11-08] MEDS: THIAMINE HCL 100 MG TABLET PO SCH ×2 (08:01→18:53)
[2016-11-08] MEDS: CIPROFLOXACIN HCL 500 MG TABLET PO SCH ×2 (08:01→18:53)
[2016-11-08] MEDS: CARBIDOPA/LEVODOPA 25-100 MG TABLET PO SCH ×3 (08:01→18:53)
[2016-11-08] MEDS: MULTIVITAMINS WITH MINERALS, THERAPEUTIC TABLET PO SCH (08:01)
[2016-11-08 08:02] VITALS: BP 112/70
[2016-11-08] MEDS: NYSTATIN 30 GM CREAM TP SCH ×2 (08:04→18:53)
[2016-11-08 11:12] LABS: GLUCOSE,POINT OF CARE 94 MG/DL (70-110)
[2016-11-08 19:18] VITALS: BP 113/66
[2016-11-08] MEDS: OLANZapine 10 MG RAPDIS TABLET PO SCH (21:14)
[2016-11-08] MEDS: TraZODone HCL 100 MG TABLET PO SCH (21:14)
[2016-11-09] MEDS: LEVOTHYROXINE SODIUM 100 MCG TABLET PO SCH (06:18)
[2016-11-09] MEDS: MULTIVITAMINS WITH MINERALS, THERAPEUTIC TABLET PO SCH (07:46)
[2016-11-09] MEDS: THIAMINE HCL 100 MG TABLET PO SCH ×2 (07:46→16:38)
[2016-11-09] MEDS: CIPROFLOXACIN HCL 500 MG TABLET PO SCH ×2 (07:46→16:38)
[2016-11-09] MEDS: CARBIDOPA/LEVODOPA 25-100 MG TABLET PO SCH ×3 (07:47→16:38)
[2016-11-09] MEDS: ASPIRIN 81 MG EC TABLET PO SCH (07:47)
[2016-11-09] MEDS: NYSTATIN 30 GM CREAM TP SCH ×2 (07:47→16:39)
[2016-11-09] MEDS: LISINOPRIL 20 MG TABLET PO SCH (07:47)
[2016-11-09] MEDS: FOLIC ACID 1 MG TABLET PO SCH (07:47)
[2016-11-09 08:02] VITALS: BP 151/79
[2016-11-09] MEDS: LORazepam 2 MG TABLET PO PRN (09:19)
[2016-11-09] MEDS: OLANZapine 5 MG RAPDIS TABLET PO PRN (09:19)
[2016-11-09] MEDS: MAGNESIUM HYDROXIDE SUSPENSION 30 ML UDCUP PO PRN (12:14)
[2016-11-09 17:00] VITALS: BP 108/80
[2016-11-09] MEDS: OLANZapine 10 MG RAPDIS TABLET PO SCH (20:54)
[2016-11-09] MEDS: TraZODone HCL 100 MG TABLET PO SCH (20:55)
[2016-11-10] MEDS: LEVOTHYROXINE SODIUM 100 MCG TABLET PO SCH (06:24)
[2016-11-10 06:30] VITALS: BP 143/91
[2016-11-10] MEDS: FOLIC ACID 1 MG TABLET PO SCH (08:00)
[2016-11-10] MEDS: CARBIDOPA/LEVODOPA 25-100 MG TABLET PO SCH ×3 (08:00→16:32)
[2016-11-10] MEDS: THIAMINE HCL 100 MG TABLET PO SCH ×2 (08:00→16:32)
[2016-11-10] MEDS: NYSTATIN 30 GM CREAM TP SCH ×2 (08:00→16:33)
[2016-11-10] MEDS: CIPROFLOXACIN HCL 500 MG TABLET PO SCH ×2 (08:00→16:32)
[2016-11-10] MEDS: ASPIRIN 81 MG EC TABLET PO SCH (08:00)
[2016-11-10] MEDS: MULTIVITAMINS WITH MINERALS, THERAPEUTIC TABLET PO SCH (08:00)
[2016-11-10] MEDS: LISINOPRIL 20 MG TABLET PO SCH (08:03)
[2016-11-10 08:34] VITALS: BP 104/78
[2016-11-10] MEDS: OLANZapine 5 MG RAPDIS TABLET PO PRN (14:48)
[2016-11-10 16:53] VITALS: BP 111/60
[2016-11-10] MEDS: OLANZapine 10 MG RAPDIS TABLET PO SCH (20:36)
[2016-11-10] MEDS: TraZODone HCL 100 MG TABLET PO SCH (20:36)
[2016-11-11 02:00] VITALS: BP 138/89
[2016-11-11] MEDS: LEVOTHYROXINE SODIUM 100 MCG TABLET PO SCH (06:34)
[2016-11-11] MEDS: FOLIC ACID 1 MG TABLET PO SCH (08:13)
[2016-11-11] MEDS: CIPROFLOXACIN HCL 500 MG TABLET PO SCH ×2 (08:13→17:01)
[2016-11-11] MEDS: MULTIVITAMINS WITH MINERALS, THERAPEUTIC TABLET PO SCH (08:13)
[2016-11-11] MEDS: ASPIRIN 81 MG EC TABLET PO SCH (08:13)
[2016-11-11] MEDS: THIAMINE HCL 100 MG TABLET PO SCH ×2 (08:13→17:02)
[2016-11-11] MEDS: LISINOPRIL 20 MG TABLET PO SCH (08:13)
[2016-11-11] MEDS: CARBIDOPA/LEVODOPA 25-100 MG TABLET PO SCH ×3 (08:13→17:01)
[2016-11-11 08:15] VITALS: BP 129/81
[2016-11-11] MEDS: NYSTATIN 30 GM CREAM TP SCH ×2 (08:15→17:02)
[2016-11-11 16:31] VITALS: BP 111/72
[2016-11-11] MEDS: OLANZapine 10 MG RAPDIS TABLET PO SCH (20:03)
[2016-11-11] MEDS: TraZODone HCL 100 MG TABLET PO SCH (20:03)
[2016-11-12] MEDS: LEVOTHYROXINE SODIUM 100 MCG TABLET PO SCH (07:28)
[2016-11-12] MEDS: FOLIC ACID 1 MG TABLET PO SCH (08:55)
[2016-11-12] MEDS: MULTIVITAMINS WITH MINERALS, THERAPEUTIC TABLET PO SCH (08:55)
[2016-11-12] MEDS: LISINOPRIL 20 MG TABLET PO SCH (08:55)
[2016-11-12] MEDS: THIAMINE HCL 100 MG TABLET PO SCH ×2 (08:55→15:53)
[2016-11-12] MEDS: ASPIRIN 81 MG EC TABLET PO SCH (08:55)
[2016-11-12] MEDS: CARBIDOPA/LEVODOPA 25-100 MG TABLET PO SCH ×3 (08:56→15:53)
[2016-11-12 09:08] VITALS: BP 126/62
[2016-11-12] MEDS: MAGNESIUM HYDROXIDE SUSPENSION 30 ML UDCUP PO PRN (09:08)
[2016-11-12] MEDS ORDERED: DOCUSATE SODIUM 100 MG CAPSULE PO PRN (11:00)
[2016-11-12] MEDS: LORazepam 2 MG TABLET PO PRN (12:26)
[2016-11-12 16:35] VITALS: BP 104/55
[2016-11-12 16:36] VITALS: BP 104/55
[2016-11-12] MEDS ORDERED: OLAN10TA22 PO (17:41)
[2016-11-12] MEDS ORDERED: TRAZ-147 PO (17:41)
[2016-11-12] MEDS: TraZODone HCL 100 MG TABLET PO SCH (20:21)
[2016-11-12] MEDS: OLANZapine 10 MG RAPDIS TABLET PO SCH (20:21)
[2016-11-13] MEDS: LEVOTHYROXINE SODIUM 100 MCG TABLET PO SCH (07:10)
[2016-11-13 08:00] VITALS: BP 111/75
[2016-11-13] MEDS: THIAMINE HCL 100 MG TABLET PO SCH (08:49)
[2016-11-13] MEDS: FOLIC ACID 1 MG TABLET PO SCH (08:49)
[2016-11-13] MEDS: CARBIDOPA/LEVODOPA 25-100 MG TABLET PO SCH ×2 (08:49→12:44)
[2016-11-13] MEDS: ASPIRIN 81 MG EC TABLET PO SCH (08:50)
[2016-11-13] MEDS: MULTIVITAMINS WITH MINERALS, THERAPEUTIC TABLET PO SCH (08:52)
[2016-11-13] MEDS: LISINOPRIL 20 MG TABLET PO SCH (08:54)
[2016-11-13] MEDS: LORazepam 2 MG TABLET PO PRN (08:58)
[2016-11-13] MEDS: OLANZapine 5 MG RAPDIS TABLET PO PRN (09:00)
[2016-11-13] MEDS ORDERED: MULT-248 PO (11:12)
== END 2016-11-13 14:38 | disposition home or self-care (01) | DRG 885 ==
LOC: EMS 13:35 → 3EX 16:06
PROVIDERS: ADMIT Psychiatry & Neurology Psychiatry; ATTEND Psychiatry & Neurology Psychiatry
DX: F20.0 Paranoid schizophrenia (principal); N39.0 Urinary tract infection, site not specified; Z86.19 Personal history of other infectious and parasitic diseases; D69.6 Thrombocytopenia, unspecified; E03.9 Hypothyroidism, unspecified; D64.9 Anemia, unspecified; F32.9 Major depressive disorder, single episode, unspecified; G20 Parkinson's disease; G24.9 Dystonia, unspecified; I10 Essential (primary) hypertension; J45.909 Unspecified asthma, uncomplicated; K21.9 Gastro-esophageal reflux disease without esophagitis; G89.4 Chronic pain syndrome; K59.00 Constipation, unspecified; M81.0 Age-related osteoporosis without current pathological fracture; Z79.83 Long term (current) use of bisphosphonates; Z79.899 Other long term (current) drug therapy; Z91.19 Patient's noncompliance with other medical treatment and regimen
CPT/HCPCS: 82962; 83036; 84439; 84443; 86592; 87081; 87086; 93005; 96372; 99285; G0480; J0696; J3420; J3490

== ENCOUNTER 2017-12-26 12:55 | Emergency (ER) | payer MEDICARE, OTHER ==
[~2017-12-26] VITALS: Ht 167.6 cm; Wt 90.9 kg
[~2017-12-26 12:55] MED LIST changes: -ALEN70TA48 PO; -ASPI-1093 PO; +ASPI-1182 PO; -MEGE400O21 PO; +MULT-248 PO; -MV-M1TAB2 PO; +OLAN10TA22 PO; +OLAN5TAB40 PO; -OLAN5Z PO; -PROV2.5 PO; -THIA100 PO; +THIA100T67 PO; -TRAZ-147 PO; +TRAZ-220 PO
[2017-12-26 14:25] VITALS: BP 162/87
== END 2017-12-26 16:05 | disposition home or self-care (01) ==
LOC: EMS 12:56
DX: S52.121A Displaced fracture of head of right radius, initial encounter for closed fracture (principal); K21.9 Gastro-esophageal reflux disease without esophagitis; I10 Essential (primary) hypertension; E03.9 Hypothyroidism, unspecified; W18.30XA Fall on same level, unspecified, initial encounter; Y93.89 Activity, other specified; Y92.89 Other specified places as the place of occurrence of the external cause; Y99.8 Other external cause status
CPT/HCPCS: 29105; 99284

== ENCOUNTER 2018-11-02 13:27 | Inpatient (IN) | payer MEDICARE, MEDICAID ==
[~2018-11-02] VITALS: Ht 160 cm; Wt 73.2 kg
[~2018-11-02 13:27] MED LIST changes: +AMLO-511 PO; +METO-408 PO; -OLAN5TAB40 PO; +PANT20TA12 PO; +ROPI0.2535 PO
[2018-11-02] MEDS ORDERED: LEVE250T55 PO (13:46)
[2018-11-02] MEDS ORDERED: ACETAMINOPHEN 500 MG TABLET PO ONE (15:15)
[2018-11-02 16:07] LABS: BASOPHILS % (AUTO) 0.9 % (0.0-2.0); EOSINOPHILS % (AUTO) 0.7 % (1.0-6.0); HEMATOCRIT 44.6 % (36-46); HEMOGLOBIN 15.2 g/dL (12.0-16.0); LYMPHOCYTES # (AUTO) 2.1 K/uL (1.0-4.8); LYMPHOCYTES % (AUTO) 32.6 % (22.0-44.0); MEAN CORPUSCULAR HEMOGLOBIN 32.3 pg (26.0-34.0); MEAN CORPUSCULAR HGB CONC 34.1 G/dL (31.0-37.0); MEAN CORPUSCULAR VOLUME 95 fL (80-100); MONOCYTES # (AUTO) 0.5 K/uL (0.1-1.0); NEUTROPHILS # (AUTO) 3.8 K/uL (1.8-7.7); NEUTROPHILS % (AUTO) 58.8 % (40.0-70.0); PLATELET COUNT (AUTO) 159 K/uL (150-450); RED BLOOD CELL COUNT(AUTO) 4.71 MIL/uL (4.00-5.20); RED CELL DISTRIBUTION WIDTH 12.7 % (11.5-14.5)
[2018-11-02 16:18] LABS: CALCIUM, TOTAL 9.7 mg/dL (8.8-10.5); CREATININE 1.47 mg/dL (0.60-1.30); POTASSIUM 4.5 mmol/L (3.5-5.1)
[2018-11-02 16:22] LABS: ALBUMIN 3.6 g/dL (3.4-5.0); BILIRUBIN,TOTAL 0.6 mg/dL (0.1-1.0); TOTAL PROTEIN, SERUM 7.3 g/dL (6.4-8.2)
[2018-11-02 18:55] LABS: APPEARANCE,URINE CLOUDY (CLEAR); BILIRUBIN,URINE NEGATIVE (NEGATIVE); GLUCOSE, URINE (UA) NEGATIVE (NEGATIVE); KETONES,URINE TRACE mg/dL (NEGATIVE); LEUKOCYTE ESTERASE ,URINE MODERATE (NEGATIVE); NITRATE,URINE NEGATIVE (NEGATIVE); OCCULT BLOOD,URINE NEGATIVE (NEGATIVE); PROTEIN,URINE TRACE (NEGATIVE)
[2018-11-02 19:22] LABS: RBC,URINE None Seen /HPF (0-2)
[2018-11-02 19:23] LABS: BACTERIA,URINE Few /HPF (None Seen); CALCIUM OXALATE CRYSTALS,UR Moderate /LPF (None Seen); SQUAMOUS EPITHELIAL CELL,UR Few /LPF (None Seen); WBC,URINE 26-50 /HPF (0-5)
[2018-11-02 19:24] LABS: RENAL EPITHELIAL CELLS,URINE Few /LPF (None Seen)
[2018-11-02] MEDS ORDERED: CEPHALEXIN MONOHYDRATE 500 MG CAPSULE PO ONE (19:30)
[2018-11-02] MEDS ORDERED: LORazepam 1 MG TABLET PO PRN (20:45)
[2018-11-02] MEDS ORDERED: ChlorproMAZINE HCL 50 MG TABLET PO PRN (20:45)
[2018-11-02] MEDS ORDERED: ZOLPIDEM TARTRATE 10 MG TABLET PO PRN (20:45)
[2018-11-02] MEDS: OLANZapine 5 MG RAPDIS TABLET PO SCH (21:00)
[2018-11-02 22:04] VITALS: BP 136/79
[2018-11-02] MEDS: TraZODone HCL 50 MG TABLET PO SCH (22:53)
[2018-11-02] MEDS ORDERED: MAG HYDROX/AL HYDROX/SIMETH ES 30 ML SUSPENSION UDCUP PO PRN (23:00)
[2018-11-02] MEDS ORDERED: MAGNESIUM HYDROXIDE SUSPENSION 30 ML UDCUP PO PRN (23:00)
[2018-11-02] MEDS ORDERED: BACITRACIN 28.4 GM OINTMENT TP PRN (23:00)
[2018-11-02] MEDS ORDERED: PETROLATUM,WHITE 28 GM JELLY TP PRN (23:00)
[2018-11-02] MEDS ORDERED: BENZOCAINE/MENTHOL LOZENGE MM PRN (23:00)
[2018-11-02] MEDS ORDERED: ALBUTEROL SULFATE HFA 90 MCG/PUFF 8 GM INHALER IH PRN (23:00)
[2018-11-02] MEDS ORDERED: ONDANSETRON HCL 4 MG TABLET PO PRN (23:00)
[2018-11-02] MEDS ORDERED: LOPERAMIDE HCL 2 MG CAPSULE PO PRN (23:00)
[2018-11-02] MEDS ORDERED: ACETAMINOPHEN 325 MG TABLET PO PRN (23:00)
[2018-11-02] MEDS ORDERED: CloNIDine HCL 0.1 MG TABLET PO PRN (23:00)
[2018-11-03 02:07] VITALS: BP 126/60
[2018-11-03 06:50] LABS: CHOL/HDL RATIO 2.6 (3.9-5.7)
[2018-11-03] MEDS: LEVOTHYROXINE SODIUM 100 MCG TABLET PO SCH (06:56)
[2018-11-03 08:00] VITALS: BP 105/70
[2018-11-03] MEDS ORDERED: DOCUSATE SODIUM 100 MG CAPSULE PO PRN (09:00)
[2018-11-03] MEDS ORDERED: DOCUSATE SODIUM 100 MG CAPSULE PO SCH (09:00)
[2018-11-03] MEDS ORDERED: OMEPRAZOLE 20 MG CAPSULE PO SCH (09:00)
[2018-11-03] MEDS: ASPIRIN 81 MG EC TABLET PO SCH (10:58)
[2018-11-03] MEDS: LISINOPRIL 20 MG TABLET PO SCH (10:58)
[2018-11-03] MEDS: AmLODIPine BESYLATE 5 MG TABLET PO SCH (10:58)
[2018-11-03] MEDS: MULTIVITAMINS WITH MINERALS, THERAPEUTIC TABLET PO SCH (10:58)
[2018-11-03] MEDS: THIAMINE HCL 100 MG TABLET PO SCH ×2 (10:59→16:13)
[2018-11-03] MEDS: LevETIRAcetam 250 MG TABLET PO SCH ×2 (10:59→16:13)
[2018-11-03] MEDS: CARBIDOPA/LEVODOPA 25-100 MG TABLET PO SCH ×3 (10:59→16:12)
[2018-11-03] MEDS: FOLIC ACID 1 MG TABLET PO SCH (10:59)
[2018-11-03] MEDS: PANTOPRAZOLE SODIUM 40 MG DR TABLET PO SCH (11:01)
[2018-11-03] MEDS: IBUPROFEN 600 MG TABLET PO PRN ×2 (11:01→17:27)
[2018-11-03] MEDS: CEPHALEXIN MONOHYDRATE 500 MG CAPSULE PO SCH (16:41)
[2018-11-03 17:27] VITALS: BP 112/74
[2018-11-03] MEDS: TraZODone HCL 50 MG TABLET PO SCH (20:03)
[2018-11-03] MEDS: OLANZapine 5 MG RAPDIS TABLET PO SCH (20:03)
[2018-11-03] MEDS ORDERED: DiphenhydrAMINE HCL 25 MG CAPSULE PO SCH (21:00)
[2018-11-03] MEDS ORDERED: HALOPERIDOL 5 MG TABLET PO SCH (21:00)
[2018-11-04 05:30] VITALS: BP 123/73
[2018-11-04] MEDS: IBUPROFEN 600 MG TABLET PO PRN ×2 (05:32→20:59)
[2018-11-04] MEDS: LEVOTHYROXINE SODIUM 100 MCG TABLET PO SCH (07:07)
[2018-11-04 08:28] VITALS: BP 125/82
[2018-11-04] MEDS: ASPIRIN 81 MG EC TABLET PO SCH (08:33)
[2018-11-04] MEDS: LevETIRAcetam 250 MG TABLET PO SCH ×2 (08:35→16:22)
[2018-11-04] MEDS: FOLIC ACID 1 MG TABLET PO SCH (08:35)
[2018-11-04] MEDS: CEPHALEXIN MONOHYDRATE 500 MG CAPSULE PO SCH ×3 (08:35→16:22)
[2018-11-04] MEDS: MULTIVITAMINS WITH MINERALS, THERAPEUTIC TABLET PO SCH (08:35)
[2018-11-04] MEDS: PANTOPRAZOLE SODIUM 40 MG DR TABLET PO SCH (08:35)
[2018-11-04] MEDS: AmLODIPine BESYLATE 5 MG TABLET PO SCH (08:35)
[2018-11-04] MEDS: CARBIDOPA/LEVODOPA 25-100 MG TABLET PO SCH ×3 (08:35→16:22)
[2018-11-04] MEDS: LISINOPRIL 20 MG TABLET PO SCH (11:01)
[2018-11-04] MEDS: THIAMINE HCL 100 MG TABLET PO SCH ×2 (11:01→16:22)
[2018-11-04] MEDS ORDERED: OLANZapine 5 MG RAPDIS TABLET PO PRN (12:45)
[2018-11-04] MEDS: OLANZapine 5 MG RAPDIS TABLET PO SCH (20:23)
[2018-11-04] MEDS: TraZODone HCL 50 MG TABLET PO SCH (20:23)
[2018-11-04 20:59] VITALS: BP 140/74
[2018-11-05 06:11] VITALS: BP 122/71
[2018-11-05] MEDS: LEVOTHYROXINE SODIUM 100 MCG TABLET PO SCH (06:13)
[2018-11-05 08:37] VITALS: BP 147/92
[2018-11-05] MEDS: MULTIVITAMINS WITH MINERALS, THERAPEUTIC TABLET PO SCH (08:40)
[2018-11-05] MEDS: PANTOPRAZOLE SODIUM 40 MG DR TABLET PO SCH (08:40)
[2018-11-05] MEDS: IBUPROFEN 600 MG TABLET PO PRN ×2 (08:40→17:10)
[2018-11-05] MEDS: LevETIRAcetam 250 MG TABLET PO SCH ×2 (08:40→17:09)
[2018-11-05] MEDS: AmLODIPine BESYLATE 5 MG TABLET PO SCH (08:40)
[2018-11-05] MEDS: CEPHALEXIN MONOHYDRATE 500 MG CAPSULE PO SCH ×3 (08:40→17:09)
[2018-11-05] MEDS: LISINOPRIL 20 MG TABLET PO SCH (08:40)
[2018-11-05] MEDS: THIAMINE HCL 100 MG TABLET PO SCH ×2 (08:40→17:09)
[2018-11-05] MEDS: CARBIDOPA/LEVODOPA 25-100 MG TABLET PO SCH ×3 (08:40→17:09)
[2018-11-05] MEDS: FOLIC ACID 1 MG TABLET PO SCH (08:40)
[2018-11-05] MEDS: ASPIRIN 81 MG EC TABLET PO SCH (08:40)
[2018-11-05 17:05] VITALS: BP 129/67
[2018-11-05] MEDS: TraZODone HCL 50 MG TABLET PO SCH (20:27)
[2018-11-05] MEDS ORDERED: OLANZapine 5 MG RAPDIS TABLET PO SCH (21:00)
[2018-11-06] MEDS: LEVOTHYROXINE SODIUM 100 MCG TABLET PO SCH (06:18)
[2018-11-06] MEDS: ASPIRIN 81 MG EC TABLET PO SCH (08:34)
[2018-11-06] MEDS: AmLODIPine BESYLATE 5 MG TABLET PO SCH (08:34)
[2018-11-06] MEDS: CARBIDOPA/LEVODOPA 25-100 MG TABLET PO SCH ×3 (08:34→16:09)
[2018-11-06] MEDS: FOLIC ACID 1 MG TABLET PO SCH (08:34)
[2018-11-06] MEDS: THIAMINE HCL 100 MG TABLET PO SCH ×2 (08:34→16:09)
[2018-11-06] MEDS: LISINOPRIL 20 MG TABLET PO SCH (08:34)
[2018-11-06] MEDS: PANTOPRAZOLE SODIUM 40 MG DR TABLET PO SCH (08:34)
[2018-11-06] MEDS: IBUPROFEN 600 MG TABLET PO PRN (08:34)
[2018-11-06] MEDS: MULTIVITAMINS WITH MINERALS, THERAPEUTIC TABLET PO SCH (08:34)
[2018-11-06 08:35] VITALS: BP 127/79
[2018-11-06] MEDS: LevETIRAcetam 250 MG TABLET PO SCH ×2 (08:35→16:09)
[2018-11-06 16:45] VITALS: BP 116/76
== END 2018-11-06 19:45 | disposition home or self-care (01) | DRG 885 ==
LOC: EMS 13:28 → 3EI 21:24
PROVIDERS: ADMIT Psychiatry & Neurology Psychiatry; ATTEND Psychiatry & Neurology Psychiatry
DX: F20.0 Paranoid schizophrenia (principal); N39.0 Urinary tract infection, site not specified; R45.851 Suicidal ideations; E03.9 Hypothyroidism, unspecified; F17.200 Nicotine dependence, unspecified, uncomplicated; G20 Parkinson's disease; I10 Essential (primary) hypertension; K21.9 Gastro-esophageal reflux disease without esophagitis; M81.0 Age-related osteoporosis without current pathological fracture; Z91.19 Patient's noncompliance with other medical treatment and regimen; Z79.899 Other long term (current) drug therapy
CPT/HCPCS: 72100; 87086; 93041; G0482

== ENCOUNTER 2018-12-14 11:38 | Emergency (ER) | payer MEDICARE, OTHER ==
[~2018-12-14] VITALS: Ht 157.5 cm; Wt 72.7 kg
[~2018-12-14 11:38] MED LIST changes: +LEVE250T55 PO; -METO-408 PO; -ROPI0.2535 PO
[2018-12-14] MEDS ORDERED: ROPI0.257 PO (11:50)
[2018-12-14 12:45] LABS: EOSINOPHILS % (AUTO) 2.8 % (1.0-6.0); HEMATOCRIT 45.5 % (36-46); HEMOGLOBIN 15.1 g/dL (12.0-16.0); LYMPHOCYTES # (AUTO) 2.1 K/uL (1.0-4.8); LYMPHOCYTES % (AUTO) 38.4 % (22.0-44.0); MEAN CORPUSCULAR HEMOGLOBIN 31.5 pg (26.0-34.0); MEAN CORPUSCULAR HGB CONC 33.2 G/dL (31.0-37.0); MEAN CORPUSCULAR VOLUME 95 fL (80-100); MONOCYTES # (AUTO) 0.6 K/uL (0.1-1.0); MONOCYTES % (AUTO) 10.8 % (2.0-9.0); NEUTROPHILS # (AUTO) 2.6 K/uL (1.8-7.7); PLATELET COUNT (AUTO) 149 K/uL (150-450); RED BLOOD CELL COUNT(AUTO) 4.79 MIL/uL (4.00-5.20); RED CELL DISTRIBUTION WIDTH 12.3 % (11.5-14.5)
[2018-12-14 12:59] LABS: ANION GAP 7 mmol/L (8-16); CALCIUM, TOTAL 9.9 mg/dL (8.8-10.5); CARBON DIOXIDE 26 mmol/L (22-29); CHLORIDE 104 mmol/L (98-107); CREATININE 1.24 mg/dL (0.60-1.30); GLOMERULAR FILTR. RATE CALC 43 mL/min (>60); GLUCOSE,RANDOM 83 mg/dL (70-110); POTASSIUM 4.2 mmol/L (3.5-5.1); SODIUM SERUM 137 mmol/L (136-145); UREA NITROGEN, BLOOD 31 mg/dL (7-18)
[2018-12-14 13:02] LABS: B-TYPE NATRIURETIC PEPTIDE 5 pg/mL (0-100)
[2018-12-14 13:04] LABS: LACTIC ACID 0.9 mmol/L (0.4-2.0)
[2018-12-14 13:11] LABS: ALANINE AMINOTRANSFERASE 43 U/L (12-78); ALBUMIN 3.2 g/dL (3.4-5.0); ALKALINE PHOSPHATASE 100 U/L (46-116); ASPARTATE AMINOTRANSFERASE 59 U/L (15-37); BILIRUBIN,TOTAL 0.4 mg/dL (0.1-1.0); LIPASE 120 U/L (73-393)
[2018-12-14] MEDS ORDERED: ACETAMINOPHEN 500 MG TABLET PO ONE (13:15)
[2018-12-14] MEDS ORDERED: SODIUM CHLORIDE 0.9% 1,000 ML IV ONE (13:15)
[2018-12-14] MEDS ORDERED: PANT40TA25 PO (13:29)
[2018-12-14] MEDS ORDERED: TRAZ150 PO (13:29)
[2018-12-14 15:38] VITALS: BP 148/77
== END 2018-12-14 15:38 | disposition home or self-care (01) ==
LOC: EMS 11:38
DX: R55 Syncope and collapse (principal); R53.1 Weakness; K21.9 Gastro-esophageal reflux disease without esophagitis; I10 Essential (primary) hypertension; E03.9 Hypothyroidism, unspecified; F20.9 Schizophrenia, unspecified; Z79.899 Other long term (current) drug therapy; Z79.82 Long term (current) use of aspirin
CPT/HCPCS: 36415; 71045; 80053; 83605; 83690; 83880; 84484; 85025; 93005; 96360; 99285; G0480; J7030